=== PATIENT | male | born 1965 | race African-American/Black ===

== ENCOUNTER → 2017-03-10 | Outpatient (CLI) | payer SELFPAY ==
--- NOTE | 2017-03-11 01:59 | REP ---
Clinical: Positive PPD test. Technique: PA and lateral. Comparison: None. Findings: Mediastinum and cardiac silhouette are normal. Mild chronic-appearing basilar changes are noted. No acute consolidation, effusion, or pneumothorax. Skeletal structures intact. Impression: Chronic-appearing changes. No acute cardiopulmonary process. Signed by Yovanny Garrison MD 03/11/2017 01:50 A
== END ==
LOC: M WUC 16:56
PROVIDERS: ATTEND Physician Assistant
DX: R76.11 Nonspecific reaction to tuberculin skin test without active tuberculosis (principal)

== ENCOUNTER → 2022-07-02 | Outpatient (REF) | LOC: M LAB 12:09 | PROVIDERS: ATTEND Nurse Practitioner Adult Health | DX: Z00.00 Encounter for general adult medical examination without abnormal findings (principal) ==